=== PATIENT | male | born 1950 | race Caucasian/White ===

== ENCOUNTER 2022-06-23 18:46 | Inpatient (IN) | payer MEDICARE, OTHER ==
[~2022-06-23] VITALS: Ht 167.6 cm; Wt 100.1 kg
[2022-06-23 19:49] LABS: BASOPHILS ABSOLUTE AUTO 0.04 K/mm3 (0.00-0.23); BASOPHILS PERCENT AUTO 0 % (0-2); EOSINOPHILS ABSOLUTE AUTO 0.11 K/mm3 (0.00-0.68); EOSINOPHILS PERCENT AUTO 1 % (0-6); Hematocrit 47.9 % (37.0-53.0); Hemoglobin 16.2 g/dL (13.5-17.5); IMMATURE GRAN ABSOLUTE AUTO 0.05 K/mm3 (0.00-0.10); IMMATURE GRAN PERCENT AUTO 1 % (0-1); LYMPHOCYTES ABSOLUTE AUTO 1.57 K/mm3 (0.84-5.20); LYMPHOCYTES PERCENT AUTO 17 % (21-46); MONOCYTES ABSOLUTE AUTO 0.59 K/mm3 (0.16-1.47); MONOCYTES PERCENT AUTO 6 % (4-13); Mean Corpuscular HGB 29.6 pg (26.0-34.0); Mean Corpuscular HGB Conc 33.8 g/dL (31.5-36.5); Mean Corpuscular Volume 88 fL (80-100); Mean Platelet Volume 10.8 fL (9.1-12.4); NEUTROPHILS PERCENT AUTO 75 % (41-73); Platelet Count 340 K/mm3 (150-400); RDW Coefficient Variation 13.6 % (11.7-14.2); RDW Standard Deviation 44.1 fL (35.1-46.3); Red Blood Cell Count 5.47 M/mm3 (4.30-5.90); White Blood Cell Count 9.26 K/mm3 (4.00-11.30)
[2022-06-23 20:06] LABS: Albumin, Blood 3.3 g/dL (3.4-5.0); Albumin/Globulin Ratio 0.8 (0.8-1.8); Bilirubin, Total 0.4 mg/dL (0.1-1.0); Bun/Creatinine Ratio 24.2 (12.0-20.0); Calcium, Blood 8.6 mg/dL (8.5-10.1); Creatinine, Blood 0.7 mg/dL (0.60-1.20); Globulin, Blood 4.1 g/dL (2.2-4.0); Potassium, Blood 4.3 mmol/L (3.5-5.5); Total Protein, Blood 7.4 g/dL (6.4-8.2)
[2022-06-23 20:25] LABS: Influenza A, PCR NEGATIVE (NEGATIVE); Influenza B, PCR NEGATIVE (NEGATIVE); Resp Syncytial Virus, PCR NEGATIVE (NEGATIVE); SARS-Cov-2 (COVID-19) PCR, MMC NEGATIVE (NEGATIVE)
[2022-06-24 00:33] LABS: Anti-Xa UFH, PHA Monitoring <0.10 IU/mL; D-Dimer, Quantitative 0.28 mg/L FEU (0.00-0.52); International Normalized Ratio 0.98; Prothrombin Time Results 10.3 Sec (9.7-11.5)
[2022-06-24] MEDS ORDERED: C COMPLEX1000 M1 PO (01:58)
[2022-06-24] MEDS ORDERED: GUAI600T33 PO (01:59)
[2022-06-24] MEDS ORDERED: ATOR40TA PO (02:00)
[2022-06-24] MEDS ORDERED: DIVA500EC PO (02:01)
[2022-06-24] MEDS ORDERED: MONT10T PO (02:03)
[2022-06-24] MEDS ORDERED: Bisoprolol PO (02:07)
[2022-06-24] MEDS ORDERED: ESCI10 PO (02:08)
[2022-06-24] MEDS ORDERED: JARDIANCE25 MG PO (02:09)
[2022-06-24] MEDS ORDERED: LOSARTAN-HCTZ1 EACH (02:10)
[2022-06-24] MEDS ORDERED: LOSARTAN-HCTZ (02:14)
[2022-06-24] MEDS ORDERED: HUMALOG KW100 UNIT/1 SC (02:24)
[2022-06-24] MEDS ORDERED: ZINC15 PO (02:25)
[2022-06-24 04:17] LABS: BASOPHILS ABSOLUTE AUTO 0.03 K/mm3 (0.00-0.23); BASOPHILS PERCENT AUTO 0 % (0-2); EOSINOPHILS ABSOLUTE AUTO 0.08 K/mm3 (0.00-0.68); EOSINOPHILS PERCENT AUTO 1 % (0-6); Hematocrit 44.3 % (37.0-53.0); IMMATURE GRAN ABSOLUTE AUTO 0.04 K/mm3 (0.00-0.10); IMMATURE GRAN PERCENT AUTO 1 % (0-1); LYMPHOCYTES ABSOLUTE AUTO 1.54 K/mm3 (0.84-5.20); LYMPHOCYTES PERCENT AUTO 19 % (21-46); MONOCYTES ABSOLUTE AUTO 0.59 K/mm3 (0.16-1.47); MONOCYTES PERCENT AUTO 7 % (4-13); Mean Corpuscular HGB 29.7 pg (26.0-34.0); Mean Corpuscular HGB Conc 33.9 g/dL (31.5-36.5); Mean Corpuscular Volume 88 fL (80-100); Mean Platelet Volume 10.7 fL (9.1-12.4); NEUTROPHILS ABSOLUTE AUTO 5.98 K/mm3 (1.96-9.15); NEUTROPHILS PERCENT AUTO 72 % (41-73); Platelet Count 318 K/mm3 (150-400); RDW Coefficient Variation 13.7 % (11.7-14.2); RDW Standard Deviation 44.2 fL (35.1-46.3); Red Blood Cell Count 5.05 M/mm3 (4.30-5.90); White Blood Cell Count 8.26 K/mm3 (4.00-11.30)
[2022-06-24 04:47] LABS: Albumin/Globulin Ratio 0.8 (0.8-1.8); Bilirubin, Total 0.5 mg/dL (0.1-1.0); Bun/Creatinine Ratio 26.6 (12.0-20.0); Calcium, Blood 8.2 mg/dL (8.5-10.1); Creatinine, Blood 0.71 mg/dL (0.60-1.20); Globulin, Blood 3.8 g/dL (2.2-4.0); Potassium, Blood 4.3 mmol/L (3.5-5.5); Total Protein, Blood 6.8 g/dL (6.4-8.2)
--- NOTE | 2022-06-24 05:40 | NUR ---
SHIFT SUMMARY PT ADMITTED THIS AM FOR ACS AND NSTEMI. HE WAS TRAVELING FROM [place] W/ HIS FRIEND WHO DRIVES TRUCK AND HE STARTED FEELING CHEST PAIN, ARM PAIN, TINGLING IN HIS EXTREMITIES, AND WAS VERY SOB. PT STATED THAT HIS FREIND BROUGHT HIM IN BUT HAD TO GO BACK TO [place]. THE PT STATES THAT HIS ONLY WAY HOME IS WHEN HIS FRIEND COMES BACK ON WEDNESDAY. SINCE ARRIVING TO THE FLOOR THE PT HAS DENIED ANY SOB AND ANGINA. HE IS ON A HEPARIN GTT @ 15, HAS BEEN NPO SINCE 0000, AND A CARDIOLOGY CONSULT WAS CALLED INTO THE ANSWERING SERVICE. PT IS SBA, USES THE URINAL AT BED SIDE W/ THE NEED FOR LINE MANAGMENT, AND IS ON 3L NC W/ SP02 >94%. BED ALARM ON, BED IN LOW, AND CALL LIGHT IN REACH. WILL CONTINUE TO MONITOR UNTIL SHFIT REPORT IS GIVEN TO THE ONCOMING SHIFT RN. SEE NOTES FOR ANY UPDATES.
--- NOTE | 2022-06-24 12:27 | NUR ---
Echocardiogram completed.
--- NOTE | 2022-06-24 18:09 | NUR ---
PT IS IN [employer], LAST VITALS ARE NOT TAKEN PT IN [employer] [facility] AT THE TIME OF THIS NOTE. PT A/O X4, TALKING IN FULL SENTENCES. REPORTS CP AND SOB HAVE RESOLVED. AMBULATING WELL IN ROOM, USING URINAL IN ROOM. PT LAS DIM TO CLEAR T/O. RADIAL PULSES ARE STRONG, PEDAL PULSES FAINT. TRACE EDEMA NOTED TO LEGS BILAT. PT REPORTS THAT HE HAS BEEN NON-COMPLIANT WITH MEDICATIONS SINCE BEING ON A TRIP WITH HIS FRIEND HE STS THAT HIS MEDICATIONS MAKE HIM TOO HUNGRY. PT IS FROM [facility], AT THIS POINT HAS NO RIDE HOME.
[2022-06-25 02:35] LABS: Bun/Creatinine Ratio 26.9 (12.0-20.0); Calcium, Blood 8.2 mg/dL (8.5-10.1); Creatinine, Blood 0.82 mg/dL (0.60-1.20)
[2022-06-25 07:06] LABS: BASOPHILS ABSOLUTE AUTO 0.02 K/mm3 (0.00-0.23); BASOPHILS PERCENT AUTO 0 % (0-2); EOSINOPHILS ABSOLUTE AUTO 0.09 K/mm3 (0.00-0.68); EOSINOPHILS PERCENT AUTO 1 % (0-6); Hematocrit 44.2 % (37.0-53.0); Hemoglobin 14.9 g/dL (13.5-17.5); IMMATURE GRAN ABSOLUTE AUTO 0.04 K/mm3 (0.00-0.10); IMMATURE GRAN PERCENT AUTO 1 % (0-1); LYMPHOCYTES ABSOLUTE AUTO 1.02 K/mm3 (0.84-5.20); LYMPHOCYTES PERCENT AUTO 14 % (21-46); MONOCYTES ABSOLUTE AUTO 0.57 K/mm3 (0.16-1.47); MONOCYTES PERCENT AUTO 8 % (4-13); Mean Corpuscular HGB 29.8 pg (26.0-34.0); Mean Corpuscular HGB Conc 33.7 g/dL (31.5-36.5); Mean Corpuscular Volume 88 fL (80-100); Mean Platelet Volume 10.9 fL (9.1-12.4); NEUTROPHILS ABSOLUTE AUTO 5.83 K/mm3 (1.96-9.15); NEUTROPHILS PERCENT AUTO 77 % (41-73); Platelet Count 280 K/mm3 (150-400); RDW Coefficient Variation 13.8 % (11.7-14.2); RDW Standard Deviation 44.6 fL (35.1-46.3); White Blood Cell Count 7.57 K/mm3 (4.00-11.30)
[2022-06-25 07:24] LABS: CHOL/HDL RATIO 3.1; Cholesterol 133 mg/dL (50-200); HDL Cholesterol 43 mg/dL (>39); LDL/HDL RATIO 1.3; Low Density Lipoprotein Chol 58 mg/dL (0-110); Triglycerides 161 mg/dL (30-160); Very Low Density Lipoprot Chol 32 mg/dL (6-32)
--- NOTE | 2022-06-25 07:41 | NUR ---
ASSUMED CARE OF PATIENT UPON RETURN FROM THE CARDIAC ROENTGENOLOGY TEACHER AT APPROXIMATELY 19:[address] DAVID'S NOTE FOR CARDIAC INTERVENTION, RELATING DRUG ELUTING STENT PLACEMENT TO THE RAMUS, PDS AND MID-RCA. UPON RETRUN TO THE ROOM, PATIENT WAS COMPLAINING OF HEARTBURN IN HIS THROAT. HE DENIED CHEST PAIN AND/OR PRESSURE AND STATED THAT THE PAIN IS NOT THE SAME THE CHEST PAIN HE HAS HAD OVER THE PAST SEVERAL MONTHS AND IS MORE LIKE THE HEARTBURN THAT HE GETS FROM TIME TO TIME. I CALLED DR. ANTONY AND ADVISED HIM OF SUCH. ORDER RECEIVED FOR OMEPRAZOLE. DR. ANTONY ALSO REACHED OUT TO DR. DAVID REGARDING THE SAME AND BOTH MDs CAME TO THE BEDSIDE. I WAS IN THE ROOM AT THE TIME. DR. DAVID EXPLAINED TO THE PATIENT THAT THE HEARTBURN HE IS EXPERIENCING IS LIKELY NOT TRUE HEARTBURN BUT RELATED TO THE HEART ITSELF DUE TO THE INTERVENTIONS DURING THE CATH PROCEDURE, AND THAT THE PAIN CAN BE TREATED WITH NARCOTICS. MR. GALAN ALSO COMPLAINED OF SOME SHORTNESS OF BREATH AND BECAME QUITE ANXIOUS SECONDARY TO THAT. 40 MG IV LASIX ADMINISTERED ORDERED, CONDOM CATHETER PLACED ON PATIENT, AND EDUCATION PROVIDED REGARDING LIMB RESTRICTION TO THE RIGHT WRIST/ARM. REMOVAL OF THE TR BAND WAS ACCOMPLISHED WITHOUT INCIDENT, BEGINNING WITH AIR REMOVEL AT 22:00 ORDERED. THE TR BAND WAS OFF WITHIN 2 HOURS AND SITE IS SOFT, NON-TENDER, ABSENT HEMATOMA, CLEAN/DRY/INTACT. HYPERTENSION RESOLVED WITH REDUCTION OF SHORTNESS OF BREATH, ANXIETY, AND RESOLUTION OF PAIN WITH ADMINISTRATION ONE DOSE FENTANYL (50 MCG), AND AN ADDITIONAL DOSE OF METOPROLOL SUCCINATE PER ORDER MODIFICATION BY DR. DAVID. PATIENT REPORTS FEELING MUCH BETTER THIS MORNING AND IS ANXIOUS TO BE DISCHARGED.
--- NOTE | 2022-06-25 09:35 | NUR ---
CARE ASSUMPTION PT A&OX4. SP02>90% ON 1L NC. VSS. PT HAS R RADIAL, OPSITE AND ARM BOARD IN PLACE. NO BRUISING, NO BLEEDING, NO HEMATOMA. PT EDUCATED ON NO LIFTING OR PUSHING, OBSERVED USING HIS L HAND TO EAT. GAN CATHETER DRAINING TO GRAVITY. MD HADLEY IN ROOM THIS AM TO ASSESS PT. STATES SHED LIKE HIM TO STAY ANOTHER DAY FOR CARE/DIURESING. PT STATES HE NEEDS TO DC TODAY DUE TO HIS RIDE LEAVING [place] TO [place] TODAY. UPON ASSESSMENT, DISCUSSING W/ PT WHERE TO SEND HIS PRESCRIPTIONS, WHILE FRIEND (RIDE) ON SPEAKER PHONE. PT AND FRIEND DECIDED FRIEND WILL [employer] RADIO TECHNICIAN IN AM 12/16 SO THEY CAN GET PRESCRIPTIONS BEFORE STARTING DRIVE. MD HADLEY UPDATE.
--- NOTE | 2022-06-25 18:20 | NUR ---
SHIFT SUMMARY NO CHANGES SINCE CARE ASSUMPTION. PT A&OX4, ON PHONE TO FRIENDS/FAMILY MOST OF DAY, SPEAKING ABOUT CHANGING LIFESTYLE, DIET, THE IMPORTANCE OF TAKING MEDICATION. SP02>95% ON 1L NC. VSS. R RADIAL W/O BRUISING, BLEEDING. ARM BOARD IN PLACE. LASIX GIVEN PER EMAR. PT USING URINAL FREQUENTLY AT BEDSIDE. PT CURRENTLY UP IN RECLINER FOR THE AFTERNOON. CALL LIGHT IN REACH.
[2022-06-26 05:32] LABS: BASOPHILS ABSOLUTE AUTO 0.01 K/mm3 (0.00-0.23); BASOPHILS PERCENT AUTO 0 % (0-2); EOSINOPHILS PERCENT AUTO 1 % (0-6); Hematocrit 44.5 % (37.0-53.0); Hemoglobin 15.2 g/dL (13.5-17.5); IMMATURE GRAN ABSOLUTE AUTO 0.03 K/mm3 (0.00-0.10); IMMATURE GRAN PERCENT AUTO 0 % (0-1); LYMPHOCYTES ABSOLUTE AUTO 1.56 K/mm3 (0.84-5.20); LYMPHOCYTES PERCENT AUTO 19 % (21-46); MONOCYTES ABSOLUTE AUTO 0.66 K/mm3 (0.16-1.47); MONOCYTES PERCENT AUTO 8 % (4-13); Mean Corpuscular HGB 29.7 pg (26.0-34.0); Mean Corpuscular HGB Conc 34.2 g/dL (31.5-36.5); Mean Corpuscular Volume 87 fL (80-100); NEUTROPHILS ABSOLUTE AUTO 5.68 K/mm3 (1.96-9.15); NEUTROPHILS PERCENT AUTO 71 % (41-73); Platelet Count 298 K/mm3 (150-400); RDW Coefficient Variation 13.5 % (11.7-14.2); RDW Standard Deviation 42.9 fL (35.1-46.3); Red Blood Cell Count 5.11 M/mm3 (4.30-5.90); White Blood Cell Count 8.04 K/mm3 (4.00-11.30)
[2022-06-26 05:50] LABS: Bun/Creatinine Ratio 29.5 (12.0-20.0); Calcium, Blood 8.5 mg/dL (8.5-10.1); Creatinine, Blood 0.91 mg/dL (0.60-1.20); Potassium, Blood 3.4 mmol/L (3.5-5.5)
--- NOTE | 2022-06-26 06:22 | NUR ---
SHIFT SUMMERY NO ACUTE CHANGES OVERNIGHT
[2022-06-26] MEDS ORDERED: ASPI81CH PO (08:24)
[2022-06-26] MEDS ORDERED: METO25ER PO (08:25)
[2022-06-26] MEDS ORDERED: SPIR25 PO (08:25)
[2022-06-26] MEDS ORDERED: FURO40 PO (08:26)
[2022-06-26] MEDS ORDERED: TICA90TA PO (08:26)
--- NOTE | 2022-06-26 15:31 | NUR ---
SHIFT SUMMARY NO ACUTE CHANGES THIS SHIFT. PER NIGHT REPORT, MD HADLEY IN ROOM EARLY THIS MORNING TO ASSESS PT. MD OLIVEROS IN ROOM THIS AM, GAVE DISCHARGE ORDERS. DISCHARGE ORDERS REVIEWED WITH PT, MEDICATION CHANGES REVIEWED W/ PT. PT STATED VERBAL UNDERSTANDING OF FOLLOWING UP WITH PCP AND CARDIOLOGY IN [facility]. MEDICATIONS SENT TO [facility] IN [place] FOR PT TO EQUIPMENT SERVICES ASSOCIATE BEFORE DRIVING BACK TO [place]. PT WHEELED TO ER ENTRANCE AND PICKED UP BY FRIEND IN [employer].
== END 2022-06-26 15:23 | disposition home or self-care (01) | DRG 246 ==
LOC: ER 18:46 → PCU 23:07 → ER 23:14 → ERHOLD 23:14 → PCU 06-24 00:36
PROVIDERS: Emergency Medicine; Internal Medicine Cardiovascular Disease; Physician Assistant; ADMIT Internal Medicine
PROC: 027236Z Dilation of Coronary Artery, Three Arteries with Three Drug-eluting Intraluminal Devices, Percutaneous Approach (ICD-10-PCS; principal; 2022-06-24)
PROC: 4A023N7 Measurement of Cardiac Sampling and Pressure, Left Heart, Percutaneous Approach (ICD-10-PCS; 2022-06-24)
PROC: B211YZZ Fluoroscopy of Multiple Coronary Arteries using Other Contrast (ICD-10-PCS; 2022-06-24)
PROC: B240ZZ3 Ultrasonography of Single Coronary Artery, Intravascular (ICD-10-PCS; 2022-06-24)
DX: I21.4 Non-ST elevation (NSTEMI) myocardial infarction (principal); I50.23 Acute on chronic systolic (congestive) heart failure; J96.11 Chronic respiratory failure with hypoxia; I35.0 Nonrheumatic aortic (valve) stenosis; E11.9 Type 2 diabetes mellitus without complications; I11.0 Hypertensive heart disease with heart failure; E78.5 Hyperlipidemia, unspecified; J44.9 Chronic obstructive pulmonary disease, unspecified; F31.9 Bipolar disorder, unspecified; E66.9 Obesity, unspecified; E87.6 Hypokalemia; F10.10 Alcohol abuse, uncomplicated; I25.110 Atherosclerotic heart disease of native coronary artery with unstable angina pectoris; Z20.822 Contact with and (suspected) exposure to COVID-19; Z68.36 Body mass index [BMI] 36.0-36.9, adult; Z91.14 Patient's other noncompliance with medication regimen; Z85.828 Personal history of other malignant neoplasm of skin; Z88.8 Allergy status to other drugs, medicaments and biological substances; Z98.890 Other specified postprocedural states; Z99.81 Dependence on supplemental oxygen; Z91.040 Latex allergy status; Z86.16 Personal history of COVID-19; Z79.899 Other long term (current) drug therapy; Z79.02 Long term (current) use of antithrombotics/antiplatelets; Z79.4 Long term (current) use of insulin; Z87.01 Personal history of pneumonia (recurrent); Z86.718 Personal history of other venous thrombosis and embolism
CPT/HCPCS: 0241U; 36415; 71046; 76937; 80048; 80053; 80061; 82947; 83690; 83880; 84484; 85025; 85347; 85379; 85520; 85610; 93005; 93010; 93306; 93458; 93970; 94640; 94664; 94762; 96374; 96375; 99152; 99153; 99285-25; A9270; C1725; C1769; C1874; C1887; C1894; C9600; C9601; G0378; J1644; J1940; J2250; J2270; J2405; J3010; J7030; J7050; Q9967